=== PATIENT | female | born 1980 | race Caucasian/White ===

== ENCOUNTER 2020-02-06 12:19 | Emergency (ER) | payer SELFPAY ==
[~2020-02-06] VITALS: Ht 165.1 cm; Wt 77.1 kg
--- NOTE | 2020-02-06 12:31 | NUR ---
CAME IN FOR BILATERAL HAND AND WRIST PAIN,FELL OFF OVERBOARD THIS MORNING, TO ER BED 10, HOOKED TO MONITOR, DR WALLACE AT BEDSIDE, KEPT COMFORTABLE
--- NOTE | 2020-02-06 12:43 | NUR ---
RECEIVED VERBAL ORDER FROM DR LOERA FOR NORCO 5/325MG PO. CARRIED OUT
[2020-02-06] MEDS ORDERED: HYDROCODONE/APAP 5/325MG TABLET ONE (12:44)
--- NOTE | 2020-02-06 12:44 | NUR ---
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
--- NOTE | 2020-02-06 13:23 | NUR ---
Patient discharged to home in stable condition. Written and verbal after care instructions given. Patient verbalizes understanding of instruction. Instructed not to drive
[2020-02-06 13:24] VITALS: BP 139/82
[2020-02-06] MEDS ORDERED: HYDROCODONE/APAP 5/325MG TABLET PO ONE (13:30)
== END 2020-02-06 13:32 | disposition home or self-care (01) ==
LOC: ER 12:21
DX: S66.812A Strain of other specified muscles, fascia and tendons at wrist and hand level, left hand, initial encounter (principal); S66.811A Strain of other specified muscles, fascia and tendons at wrist and hand level, right hand, initial encounter; F17.200 Nicotine dependence, unspecified, uncomplicated; W18.39XA Other fall on same level, initial encounter; Y93.I9 Activity, other involving external motion; Y92.89 Other specified places as the place of occurrence of the external cause; Y99.8 Other external cause status
CPT/HCPCS: 73110; 73130-TC